=== PATIENT | female | born 1995 | race Caucasian/White ===

== ENCOUNTER 2022-12-09 16:07 | Emergency (ER) | payer OTHER, SELFPAY ==
[2022-12-09 16:13] VITALS: BP 138/82; PULSE 87; RESP 18; TEMP 36.9; O2SAT 98; BMI 39.0
--- NOTE | 2022-12-09 16:13 | ED_ITS ---
HPI - Dental/Oral General Chief complaint: Dental/Oral Stated complaint: Tooth pain Time Seen by Provider: 12/09/22 16:18 Source: patient Mode of arrival: ambulatory History of Present Illness HPI Narrative: 27-year-old female at 7 weeks gestation presenting to the ED complaining of right acute on chronic upper dental pain at cracked tooth site. Reports tooth has been cracked x years, has an appointment with her dentist on Friday however cannot handle the pain. Denies fever, chills, difficulty/inability to swallow, related complaints including abdominal pain, vaginal bleeding, vaginal discharge. MD Complaint: tooth pain Onset (ago): day(s) Related Data Previous Rx's Medication Instructions Recorded acetaminophen 500 mg tablet 500 mg PO Q6H PRN fever or pain 12/09/22 (Tylenol Extra Strength) #14 tabs amoxicillin 500 mg capsule 500 mg PO Q8H 7 days #21 caps 12/09/22 Allergies Allergy/AdvReac Type Severity Reaction Status Date / Time No Known Allergies Allergy Unverified 08/17/20 19:43 [No Known Allergies*] Review of Systems Review of Systems: Constitutional: No Fever, No Chills ENT/Mouth: +dental pain, No Ear Pain, No Nasal Congestion, No Hoarseness, No sore throat, No Rhinorrhea, No Swallowing Difficulty Cardiovascular: No Chest Pain, No SOB Respiratory: No Cough, No Sputum, No Wheezing Gastrointestinal: No vaginal bleeding, no vaginal discharge, No Nausea, No Vomiting, No Diarrhea, No Constipation, No Abdominal pain Genitourinary: No Dysuria, No Urinary Frequency, No Hematuria, No Flank Pain Musculoskeletal: No joint pain, No Myalgias, No Joint Swelling Skin: No Skin Lesions, No rash Neuro: No Weakness Yes all other systems are reviewed and are negative Constitutional: Constitutional: Reports as per [facility] Past Medical History Attestation statement: The following information was validated with the patient. Social History Social History Advance Directives: No Advance Directives Information Provided: No Physical Exam Vital Signs: Vital Signs: Last Vital Signs Temp 98.5 F 12/09/22 16:13 Pulse 87 12/09/22 16:13 Resp 18 12/09/22 16:13 BP 138/82 12/09/22 16:13 Pulse Ox 98 12/09/22 16:13 O2 Del Method 12/09/22 16:13 BMI result Body Mass Index 39.0 Const: General: cooperative, healthy appearing, no acute distress, alert and awake Orientation/consciousness: patient oriented x3 Limitations: no limitations HEENT: Other: Right upper 3rd molar cracked, no visible pulp. Surrounding gingival swelling/erythema and tenderness noted. No appreciable fluctuance/induration. No facial swelling. Oropharynx otherwise WNL, uvula midline, no evidence of [employer] Head: Yes normal to inspection and Yes atraumatic Ears: hearing grossly normal bilaterally, TM's normal bilaterally and mastoids normal General nose exam: Normal external nose present Face and sinus: Yes normal facial exam Teeth and gingiva: gingiva abnormal Throat: Yes posterior oropharynx normal, Yes tonsils normal, Yes uvula midline, No peritonsillar mass, No uvula laterally displaced and No uvular edema Eyes: General: appearance normal, both eyes and all related structures EOM: EOMs intact bilaterally Neck: Neck: Yes normal visual inspection, Yes no lymphadenopathy, Yes no meningeal signs, Yes supple and No anterior neck swelling Resp: Effort & Inspection: normal respiratory effort, no respiratory distress and no stridor Cardio: Rate: regular rate Skin: Rashes: no rashes Wounds: no wounds Neuro: General: patient oriented x3, tone normal and no meningeal signs Gait exam (Neuro): Normal gait present Extrem: General: Yes normal to inspection Medical Decision Making Medical Decision Making MDM Narrative: 27-year-old female at 7 weeks gestation presenting to the ED complaining of right acute on chronic upper dental pain at cracked tooth site. On exam vital signs stable, NAD, nontoxic appearing, physical exam as noted above. Patient denies any -related complaints. Has follow-up with her dentist next week. No evidence of abscess/cellulitis or deeper infection/edema Will initiate patient on amoxicillin and Tylenol. Differential Diagnosis Differential Diagnoses: The differential diagnosis associated with the presentation includes As above Prescription Management I considered prescription management with: Pain Medication and Antibiotic Discharge Plan Discharge Clinical Impression: Toothache Patient Disposition: Home, Self-Care Instructions: Toothache (ED) Additional Instructions: Amoxicillin is an antibiotic please take as prescribed. In addition take Tylenol. Please follow-up with her dentist. If symptoms persist or worsen return to the emergency department Prescriptions: New amoxicillin 500 mg capsule 500 mg PO Q8H 7 Days Qty: 21 0RF acetaminophen [Tylenol Extra Strength] 500 mg tablet 500 mg PO Q6H PRN (Reason: fever or pain) Qty: 14 0RF Referrals: Physician,Unknown J [Primary Care Provider] -
== END 2022-12-09 16:23 | disposition home or self-care (01) ==
LOC: HO.ED 16:22
PROVIDERS: Emergency Provider Emergency Medicine; PCP Internal Medicine
DX: O26.891 Other specified pregnancy related conditions, first trimester (principal); K08.89 Other specified disorders of teeth and supporting structures; Z3A.01 Less than 8 weeks gestation of pregnancy
CPT/HCPCS: 99282; 99283

== ENCOUNTER 2022-12-15 12:04 | Emergency (ER) | payer OTHER, SELFPAY ==
--- NOTE | ~2022-12-15 | US_ITS ---
EXAMINATION: US OBSTETRICAL ULTRASOUND CLINICAL INFORMATION: Lower abdominal cramping, . COMPARISON: None. LMP: 10/22/2022. Gestational age by maternal dates is 7 weeks 5 days. Estimated date of delivery by maternal dates is not known. TECHNIQUE: Transabdominal and transvaginal ultrasound imaging of pelvis was performed. FINDINGS: There is a single intrauterine irregular-appearing gestational sac visualized with a mean sac diameter of 0.61 cm corresponding to 5 weeks 1 day. There is nonvisualization of yolk sac, pole or heart rate. MATERNAL ADNEXA: The right maternal ovary measures 2.9 x 2.4 x 2.0 cm. It appears unremarkable. The left maternal ovary measures 2.7 x 2.4 x 3.0 cm. It appears unremarkable. There is no significant maternal adnexal mass. No maternal pelvic ascites. US/US OB pelvic and transvaginal IMPRESSION: Single intrauterine gestation with a mean sac diameter of 0.6 cm corresponding to 5 weeks 1 day. No pole, heartbeat or yolk sac seen.
[2022-12-15 12:06] VITALS: BP 130/87; PULSE 84; RESP 18; TEMP 36.7; O2SAT 98; BMI 33.9
--- NOTE | 2022-12-15 12:11 | ED.GENADULT ---
HPI - General Adult General Chief complaint: OB <SABINE Blue - Last Filed: 12/15/22 18:24> Stated complaint: 8 wks preg/Fall-Cramping <SABINE Blue - Last Filed: 12/15/22 18:24> Time Seen by Provider: 12/15/22 12:30 <SABINE Blue - Last Filed: 12/15/22 18:24> Source: patient <Marti Turner NP - Last Filed: 12/15/22 18:20> Mode of arrival: ambulatory <Marti Turner NP - Last Filed: 12/15/22 18:20> Limitations: no limitations <Marti Turner NP - Last Filed: 12/15/22 18:20> History of Present Illness HPI narrative: 27-year-old female who is healthy who is currently about 8 weeks presents with concern for lower abdominal cramping after fall which occurred today. Patient reports she tripped and fell landing on her abdomen. No head strike or loss of conscious. About an hour after the fall she started to experience some lower abdominal cramping. No vaginal bleeding. She has her 1st appointment with her OB tomorrow (?[facility] [place]). She has not had ultrasound confirm IUP. She is . Last menstrual cycle was October 22 <Marti Turner NP - Last Filed: 12/15/22 18:20> Related Data Home medications: Previous Rx's Medication Instructions Recorded acetaminophen 500 mg tablet 500 mg PO Q6H PRN fever or pain 12/09/22 (Tylenol Extra Strength) #14 tabs amoxicillin 500 mg capsule 500 mg PO Q8H 7 days #21 caps 12/09/22 <SABINE Blue - Last Filed: 12/15/22 18:24> Allergies/adverse reactions: Allergies Allergy/AdvReac Type Severity Reaction Status Date / Time No Known Allergies Allergy Verified 12/15/22 12:06 [No Known Allergies*] <SABINE Blue Last Filed: 12/15/22 18:24> Review of Systems Review of Systems: Yes all other systems are reviewed and are negative <HOLA Avalos Last Filed: 12/15/22 18:20> Constitutional: Constitutional: Reports no additional constitutional complaints, Denies body ache(s), Denies chills, Denies fever(s), Denies headache(s) and Denies weakness <Marti Turner NP - Last Filed: 12/15/22 18:20> Eyes: Eyes: Reports no additional eye complaints and Denies change in vision <Marti Turner NP - Last Filed: 12/15/22 18:20> ENT: Reports system reviewed and no additional complaints, except as documented, Denies dizziness, Denies headache(s), Denies nasal congestion, Denies nasal discharge and Denies neck pain <Marti Turner NP - Last Filed: 12/15/22 18:20> Cardiovascular: Cardiovascular: Reports no additional cardiovascular complaints, Denies chest pain, Denies leg edema and Denies dyspnea <Marti Turner NP - Last Filed: 12/15/22 18:20> Respiratory: Respiratory: Reports no additional respiratory complaints, Denies cough and Denies dyspnea <Marti Turner HOSPICE HOME CARE COORDINATOR - Last Filed: 12/15/22 18:20> Gastrointestinal: Gastrointestinal: Reports no additional gastrointestinal complaints, Reports abdominal pain, Denies diarrhea, Denies nausea and Denies vomiting <Marti Turner NP - Last Filed: 12/15/22 18:20> Genitourinary: Genitourinary: Reports no additional female genitourinary complaints and Denies urinary incontinence <Marti Turner NP - Last Filed: 12/15/22 18:20> Musculoskeletal: Musculoskeletal: Reports no additional musculoskeletal complaints, Denies back pain, Denies arthralgias, Denies joint swelling, Denies neck pain, Denies numbness and Denies tingling <Marti Turner NP - Last Filed: 12/15/22 18:20> Integumentary/Breasts: Skin/Breast: Reports system reviewed and no additional complaints, except as docu and Denies rash <Marti Tunrer NP - Last Filed: 12/15/22 18:20> Neurologic: Reports system reviewed and no additional complaints, except as documented, Denies dizziness, Denies headache(s), Denies numbness, Denies tingling and Denies weakness <Marti Turner NP - Last Filed: 12/15/22 18:20> PMF Past Medical History Attestation statement: The following information was validated with the patient. <Marti Turner NP - Last Filed: 12/15/22 18:20> Source: old records reviewed and nursing notes reviewed <Marti Turner NP - Last Filed: 12/15/22 18:20> Social History Social History: Social History Smoked in Last 30 Days: Yes Use of substances other than those prescribed or required for medical reasons: No Advance Directives: No Advance Directives Information Provided: Yes Patient : Yes <SABINE Blue - Last Filed: 12/15/22 18:24> Physical Exam ED Vital Signs: Vital Signs - 24 hr 12/15/22 12:06 12/15/22 14:39 12/15/22 17:40 Temperature 98.1 F 98.2 F 98.0 F Pulse Rate 84 80 84 Respiratory Rate 18 20 16 Blood Pressure 130/87 120/71 115/65 Pulse Oximetry 98 100 98 Oxygen Delivery Method Room Air Room Air Room Air BMI result Body Mass Index 33.9 <SABINE Blue - Last Filed: 12/15/22 18:24> Vital Signs - 24 hr 12/15/22 12:06 12/15/22 14:39 12/15/22 17:40 Temperature 98.1 F 98.2 F 98.0 F Pulse Rate 84 80 84 Respiratory Rate 18 20 16 Blood Pressure 130/87 120/71 115/65 Pulse Oximetry 98 100 98 Oxygen Delivery Method Room Air Room Air Room Air BMI result Body Mass Index 33.9 <Marti Turner NP - Last Filed: 12/15/22 18:20> Const General: cooperative, healthy appearing and comfortable <Marti Turner NP - Last Filed: 12/15/22 18:20> Orientation/consciousness: patient oriented x3 <Marti Turner NP - Last Filed: 12/15/22 18:20> Limitations: no limitations <Marti Turner NP - Last Filed: 12/15/22 18:20> HENMT Head: Yes normal to inspection <Marti Turner NP - Last Filed: 12/15/22 18:20> Ears: hearing grossly normal bilaterally <Marti Turner NP - Last Filed: 12/15/22 18:20> Eyes General: appearance normal, both eyes and all related structures <Marti Turner HOSPICE HOME CARE COORDINATOR - Last Filed: 12/15/22 18:20> Pupils: Equal, round and reactive pupils present <Marti Turner HOSPICE HOME CARE COORDINATOR - Last Filed: 12/15/22 18:20> Neck Neck: Yes normal visual inspection and Yes full ROM <Marti Turner HOSPICE HOME CARE COORDINATOR - Last Filed: 12/15/22 18:20> Chest Chest palpation & inspection: normal inspection of the chest <Matri Turner HOSPICE HOME CARE COORDINATOR - Last Filed: 12/15/22 18:20> Resp Effort & Inspection: normal respiratory effort <Marti Turner NP - Last Filed: 12/15/22 18:20> Auscultation: clear to auscultation bilaterally <Marti Turner HOSPICE HOME CARE COORDINATOR - Last Filed: 12/15/22 18:20> Cardio Rate: regular rate <Marti Turner NP - Last Filed: 12/15/22 18:20> Rhythm: regular rhythm <Marti Turner NP - Last Filed: 12/15/22 18:20> Peripheral pulses: Peripheral pulses 2+ throughout <Marti Turner HOSPICE HOME CARE COORDINATOR - Last Filed: 12/15/22 18:20> GI Inspection: Yes normal to inspection <Marti Turner HOSPICE HOME CARE COORDINATOR - Last Filed: 12/15/22 18:20> Palpation (GI): Soft to palpation and Tenderness to palpation present (GI) (suprapubic-no ecchymosis seen) <Marti Turner NP - Last Filed: 12/15/22 18:20> General: Yes no CVA tenderness <Marti Turner NP - Last Filed: 12/15/22 18:20> Back/Spine/Pelvis Back: no CVA tenderness <Marti Turner NP - Last Filed: 12/15/22 18:20> Thoracic/Lumbar Spine: thoracic and lumbar spine normal to inspection <Marti Turner NP - Last Filed: 12/15/22 18:20> Skin General skin exam: no rashes or lesions noted <Marti Turner NP - Last Filed: 12/15/22 18:20> Neuro General: patient oriented x3 and moves all extremities <Marti Turner NP - Last Filed: 12/15/22 18:20> Cranial nerves: Yes Equal, round and reactive pupils present <Marti Turner NP - Last Filed: 12/15/22 18:20> Cognition (Neuro): normal cognition <Marti Turner NP - Last Filed: 12/15/22 18:20> Gait exam (Neuro): Normal gait present <Marti Turner NP - Last Filed: 12/15/22 18:20> Course Course Course Narrative: RME: 27-year-old female presents to ED for lower abdominal suprapubic cramping after falling on her but this morning. Patient 8 weeks . Patient denies any vaginal bleeding. Patient denies any head trauma, , loss of consciousness, pain in extremities, back pain, or neck pain. Labs and ultrasound. Positive for suprapuic tenderness on palpation. <SABINE Blue - Last Filed: 12/15/22 18:24> Reevaluation(s) Reevaluation #1: 1630-multiple calls by ER staff to get ultrasound reading on successfully <Marti Turner NP - Last Filed: 12/15/22 18:20> Reevaluation #2: 1730-2nd call to Radiology looking for US report <Marti Turner NP - Last Filed: 12/15/22 18:20> Reevaluation #3: 1815-3rd call to radiology for report personally. Did receive call back from radiology with verbal report. Ultrasound shows single gestational intrauterine with a mean sac of 0.6 cm approximately 5 weeks and 1 of the 7 days. No pole, heartbeat or yolk sac seen Patient was given this information. She has an appointment tomorrow with her OB. Recommend she return for any worsening symptoms. Reviewed worrisome signs symptoms of when to return to the emergency room. Comfortable plan for discharge home. <Marti Turner NP - Last Filed: 12/15/22 18:20> Medical Decision Making Medical Decision Making MDM Narrative: 27-year-old female currently 8 weeks here with a fall with a abdominal strike now with abdominal cramping but no vaginal bleeding. Will check labs, UA, abdominal ultrasound <Marti Turner NP - Last Filed: 12/15/22 18:20> Differential Diagnosis Differential Diagnoses: The differential diagnosis associated with the presentation includes <Marti Turner NP - Last Filed: 12/15/22 18:20> Threatened miscarriage <Marti Turner NP - Last Filed: 12/15/22 18:20> Lab Data Result Diagrams: 12/15/22 12:19 12/15/22 12:19 <SABINE Blue - Last Filed: 12/15/22 18:24> Labs: Lab Results 12/15/22 12/15/22 12/15/22 Range/Units 12:19 12:19 12:19 WBC 11.4 H (4.8-10.8) X10*3/uL RBC 4.74 (4.20-5.50) X10*6/uL Hgb 12.8 (12.0-16.0) g/dl Hct 38.4 (37.0-47.0) % MCV 81.0 (80.0-98.0) fL MCH 27.0 (27.0-33.0) pg MCHC 33.3 (31.0-35.0) g/dl RDW 13.2 (11.0-16.0) % Plt Count 338 (160-400) X10*3/uL MPV 9.3 L (9.4-12.3) fL Immature Gran % (Auto) 0.3 (0.0-0.4) % Neut % (Auto) 53.2 (45-73) % Lymph % (Auto) 40.0 (20-40) % [place] % (Auto) 4.4 (2-11) % Eos % (Auto) 1.3 (0-4) % Baso % (Auto) 0.8 (0-2) % Lymph # (Auto) 4.6 (1.2-4.9) X10*3/uL [place] # (Auto) 0.5 (0.1-1.2) X10*3/uL Eos # (Auto) 0.2 (0.0-0.4) X10*3/uL Baso # (Auto) 0.1 (0.0-0.2) X10*3/uL Abs Immat Gran (auto) 0.03 (0.00-0.03) X10*3/uL Absolute Neuts (auto) 6.1 (2.0-8.3) x10*3/uL Absolute Nucleated RBC 0.000 (0.0-0.012) X10*3/uL Nucleated RBC % (auto) 0.0 (0.0-0.2) /100WBC PT 11.5 (10.0-13.1) SEC INR 1.0 (0.9-1.1) APTT 29.5 (26.0-36.4) SEC Sodium 139 (135-145) mmol/L Potassium 4.4 (3.3-5.1) mmol/L Chloride 106 (96-108) mmol/L Carbon Dioxide 25 (22-29) mmol/L Anion Gap 12 (12-20) BUN 11 (9-16) mg/dL Creatinine 0.66 (0.5-1.4) mg/dL Estim Creat Clear Calc 148.9 Estimated GFR > 60 Random Glucose 84 (60-115) mg/dL Calcium 9.4 (8.4-10.2) mg/dL Total Bilirubin 0.2 (0.0-1.0) mg/dL AST 15 (5-31) U/L ALT 18 (0-31) U/L Alkaline Phosphatase 48 (39-117) U/L Total Protein 6.8 (6.5-8.0) g/dL Albumin 4.0 (3.5-5.0) g/dL Beta HCG, Quant 3330 mIU/mL Urine Color Urine Appearance Urine pH (5.0-9.0) Ur Specific [place] (1.005-1.025) Urine Protein (Neg-Trace) mg/dL Urine Glucose (UA) (Negative) mg/dL Urine Ketones (Negative) mg/dL Urine Blood (Negative) Urine Nitrite (Negative) Ur Leukocyte Esterase (Negative) 12/15/22 Range/Units 12:19 WBC (4.8-10.8) X10*3/uL RBC (4.20-5.50) X10*6/uL Hgb (12.0-16.0) g/dl Hct (37.0-47.0) % MCV (80.0-98.0) fL MCH (27.0-33.0) pg MCHC (31.0-35.0) g/dl RDW (11.0-16.0) % Plt Count (160-400) X10*3/uL MPV (9.4-12.3) fL Immature Gran % (Auto) (0.0-0.4) % Neut % (Auto) (45-73) % Lymph % (Auto) (20-40) % [place] % (Auto) (2-11) % Eos % (Auto) (0-4) % Baso % (Auto) (0-2) % Lymph # (Auto) (1.2-4.9) X10*3/uL [place] # (Auto) (0.1-1.2) X10*3/uL Eos # (Auto) (0.0-0.4) X10*3/uL Baso # (Auto) (0.0-0.2) X10*3/uL Abs Immat Gran (auto) (0.00-0.03) X10*3/uL Absolute Neuts (auto) (2.0-8.3) x10*3/uL Absolute Nucleated RBC (0.0-0.012) X10*3/uL Nucleated RBC % (auto) (0.0-0.2) /100WBC PT (10.0-13.1) SEC INR (0.9-1.1) APTT (26.0-36.4) SEC Sodium (135-145) mmol/L Potassium (3.3-5.1) mmol/L Chloride (96-108) mmol/L Carbon Dioxide (22-29) mmol/L Anion Gap (12-20) BUN (9-16) mg/dL Creatinine (0.5-1.4) mg/dL Estim Creat Clear Calc Estimated GFR Random Glucose (60-115) mg/dL Calcium (8.4-10.2) mg/dL Total Bilirubin (0.0-1.0) mg/dL AST (5-31) U/L ALT (0-31) U/L Alkaline Phosphatase (39-117) U/L Total Protein (6.5-8.0) g/dL Albumin (3.5-5.0) g/dL Beta HCG, Quant mIU/mL Urine Color Yellow Urine Appearance Clear Urine pH 5.5 (5.0-9.0) Ur Specific [place] >= 1.030 H (1.005-1.025) Urine Protein Negative (Neg-Trace) mg/dL Urine Glucose (UA) Negative (Negative) mg/dL Urine Ketones Trace (Negative) mg/dL Urine Blood Negative (Negative) Urine Nitrite Negative (Negative) Ur Leukocyte Esterase Negative (Negative) <SABINE Blue - Last Filed: 12/15/22 18:24> Lab Results 12/15/22 12/15/22 12/15/22 Range/Units 12:19 12:19 12:19 WBC 11.4 H (4.8-10.8) X10*3/uL RBC 4.74 (4.20-5.50) X10*6/uL Hgb 12.8 (12.0-16.0) g/dl Hct 38.4 (37.0-47.0) % MCV 81.0 (80.0-98.0) fL MCH 27.0 (27.0-33.0) pg MCHC 33.3 (31.0-35.0) g/dl RDW 13.2 (11.0-16.0) % Plt Count 338 (160-400) X10*3/uL MPV 9.3 L (9.4-12.3) fL Immature Gran % (Auto) 0.3 (0.0-0.4) % Neut % (Auto) 53.2 (45-73) % Lymph % (Auto) 40.0 (20-40) % [place] % (Auto) 4.4 (2-11) % Eos % (Auto) 1.3 (0-4) % Baso % (Auto) 0.8 (0-2) % Lymph # (Auto) 4.6 (1.2-4.9) X10*3/uL [place] # (Auto) 0.5 (0.1-1.2) X10*3/uL Eos # (Auto) 0.2 (0.0-0.4) X10*3/uL Baso # (Auto) 0.1 (0.0-0.2) X10*3/uL Abs Immat Gran (auto) 0.03 (0.00-0.03) X10*3/uL Absolute Neuts (auto) 6.1 (2.0-8.3) x10*3/uL Absolute Nucleated RBC 0.000 (0.0-0.012) X10*3/uL Nucleated RBC % (auto) 0.0 (0.0-0.2) /100WBC PT 11.5 (10.0-13.1) SEC INR 1.0 (0.9-1.1) APTT 29.5 (26.0-36.4) SEC Sodium 139 (135-145) mmol/L Potassium 4.4 (3.3-5.1) mmol/L Chloride 106 (96-108) mmol/L Carbon Dioxide 25 (22-29) mmol/L Anion Gap 12 (12-20) BUN 11 (9-16) mg/dL Creatinine 0.66 (0.5-1.4) mg/dL Estim Creat Clear Calc 148.9 Estimated GFR > 60 Random Glucose 84 (60-115) mg/dL Calcium 9.4 (8.4-10.2) mg/dL Total Bilirubin 0.2 (0.0-1.0) mg/dL AST 15 (5-31) U/L ALT 18 (0-31) U/L Alkaline Phosphatase 48 (39-117) U/L Total Protein 6.8 (6.5-8.0) g/dL Albumin 4.0 (3.5-5.0) g/dL Beta HCG, Quant 3330 mIU/mL Urine Color Urine Appearance Urine pH (5.0-9.0) Ur Specific [place] (1.005-1.025) Urine Protein (Neg-Trace) mg/dL Urine Glucose (UA) (Negative) mg/dL Urine Ketones (Negative) mg/dL Urine Blood (Negative) Urine Nitrite (Negative) Ur Leukocyte Esterase (Negative) 12/15/22 Range/Units 12:19 WBC (4.8-10.8) X10*3/uL RBC (4.20-5.50) X10*6/uL Hgb (12.0-16.0) g/dl Hct (37.0-47.0) % MCV (80.0-98.0) fL MCH (27.0-33.0) pg MCHC (31.0-35.0) g/dl RDW (11.0-16.0) % Plt Count (160-400) X10*3/uL MPV (9.4-12.3) fL Immature Gran % (Auto) (0.0-0.4) % Neut % (Auto) (45-73) % Lymph % (Auto) (20-40) % [place] % (Auto) (2-11) % Eos % (Auto) (0-4) % Baso % (Auto) (0-2) % Lymph # (Auto) (1.2-4.9) X10*3/uL [place] # (Auto) (0.1-1.2) X10*3/uL Eos # (Auto) (0.0-0.4) X10*3/uL Baso # (Auto) (0.0-0.2) X10*3/uL Abs Immat Gran (auto) (0.00-0.03) X10*3/uL Absolute Neuts (auto) (2.0-8.3) x10*3/uL Absolute Nucleated RBC (0.0-0.012) X10*3/uL Nucleated RBC % (auto) (0.0-0.2) /100WBC PT (10.0-13.1) SEC INR (0.9-1.1) APTT (26.0-36.4) SEC Sodium (135-145) mmol/L Potassium (3.3-5.1) mmol/L Chloride (96-108) mmol/L Carbon Dioxide (22-29) mmol/L Anion Gap (12-20) BUN (9-16) mg/dL Creatinine (0.5-1.4) mg/dL Estim Creat Clear Calc Estimated GFR Random Glucose (60-115) mg/dL Calcium (8.4-10.2) mg/dL Total Bilirubin (0.0-1.0) mg/dL AST (5-31) U/L ALT (0-31) U/L Alkaline Phosphatase (39-117) U/L Total Protein (6.5-8.0) g/dL Albumin (3.5-5.0) g/dL Beta HCG, Quant mIU/mL Urine Color Yellow Urine Appearance Clear Urine pH 5.5 (5.0-9.0) Ur Specific [place] >= 1.030 H (1.005-1.025) Urine Protein Negative (Neg-Trace) mg/dL Urine Glucose (UA) Negative (Negative) mg/dL Urine Ketones Trace (Negative) mg/dL Urine Blood Negative (Negative) Urine Nitrite Negative (Negative) Ur Leukocyte Esterase Negative (Negative) <Marti Turner NP - Last Filed: 12/15/22 18:20> Independent Interpretation I performed an independent interpretation of an: Ultrasound <Marti Turner NP - Last Filed: 12/15/22 18:20> Radiology Impression Discussion of test interpretation with radiology: I have reviewed the radiologist's reading. <Marti Turner NP - Last Filed: 12/15/22 18:20> Discharge Plan Discharge Clinical Impression: Threatened miscarriage <SABINE Blue - Last Filed: 12/15/22 18:24> Patient Disposition: Home, Self-Care <SABINE Blue - Last Filed: 12/15/22 18:24> Instructions: Threatened Miscarriage (ED) <SABINE Blue - Last Filed: 12/15/22 18:24> Additional Instructions: Keep your appointment tomorrow with your Ob Your beta quant is 3330 Your ultrasound shows a single intrauterine with a mean sac of 0.6 cm. There estimating you are 5 weeks. There is no pole or heartbeat seen at this time. This may be because it is too soon to see this on ultrasound. Follow-up closely with your OB to determine if you need repeat ultrasound or hormone levels. Return for any bleeding. Pelvic rest so that means no sexual intercourse until cramping is resolved. Tylenol only for pain. Make sure that you are taking your <SABINE Blue - Last Filed: 12/15/22 18:24> Prescriptions: No Action amoxicillin 500 mg capsule 500 mg PO Q8H 7 Days Qty: 21 0RF acetaminophen [Tylenol Extra Strength] 500 mg tablet 500 mg PO Q6H PRN (Reason: fever or pain) Qty: 14 0RF <SABINE Blue - Last Filed: 12/15/22 18:24> Referrals: Physician,Unknown J [Primary Care Provider] - <SABINE Blue - Last Filed: 12/15/22 18:24> Stand Alone Forms: Work/School Release <SABINE Blue - Last Filed: 12/15/22 18:24>
[2022-12-15 12:24] LABS: MANUAL DIFF FLAG NO
[2022-12-15 12:29] LABS: Basophils Absolute Auto 0.1 X10*3/uL (0.0-0.2); Basophils Percent Auto 0.8 % (0-2); Eosinophils Absolute Auto 0.2 X10*3/uL (0.0-0.4); Eosinophils Percent Auto 1.3 % (0-4); Hematocrit 38.4 % (37.0-47.0); Hemoglobin 12.8 g/dl (12.0-16.0); Imm Gran Abs Auto 0.03 X10*3/uL (0.00-0.03); Imm Gran Pct Auto 0.3 % (0.0-0.4); Lymphocytes Absolute Auto 4.6 X10*3/uL (1.2-4.9); Mean Corpuscular HGB Conc 33.3 g/dl (31.0-35.0); Mean Platelet Volume 9.3 fL (9.4-12.3); Monocytes Absolute Auto 0.5 X10*3/uL (0.1-1.2); Monocytes Percent Auto 4.4 % (2-11); Neutrophils Absolute Auto 6.1 x10*3/uL (2.0-8.3); Neutrophils Percent Auto 53.2 % (45-73); Platelet Count 338 X10*3/uL (160-400); Red Blood Count 4.74 X10*6/uL (4.20-5.50); Red Cell Distribution Width 13.2 % (11.0-16.0); White Blood Count 11.4 X10*3/uL (4.8-10.8)
[2022-12-15 12:35] LABS: Prothrombin Time 11.5 SEC (10.0-13.1)
[2022-12-15 12:37] LABS: Partial Thromboplastin Time 29.5 SEC (26.0-36.4)
[2022-12-15 12:42] LABS: Appearance Urine Clear; Color Urine Yellow; Glucose Urine UA Negative (Negative); Leukocyte Esterase Urine Negative (Negative); Nitrite Urine Negative (Negative); PH 5.5 (5.0-9.0); Specific Gravity - Urine >= 1.030 (1.005-1.025); Urine Blood Negative (Negative); Urine Ketones Trace mg/dL (Negative); Urine Protein Negative (Neg-Trace)
[2022-12-15 12:48] LABS: Alanine Aminotransferase 18 U/L (0-31); Alkaline Phosphatase 48 U/L (39-117); Anion Gap 12 (12-20); Aspartate Amino Transferase 15 U/L (5-31); Bilirubin Total 0.2 mg/dL (0.0-1.0); Blood Urea Nitrogen 11 mg/dL (9-16); Calcium 9.4 mg/dL (8.4-10.2); Carbon Dioxide 25 mmol/L (22-29); Chloride 106 mmol/L (96-108); Creatinine Clr Calc Pharmacy 148.9; Estimated Glomerular Filt Rate > 60; Glucose Random 84 mg/dL (60-115); HCG Quantitative 3330 mIU/mL; Potassium 4.4 mmol/L (3.3-5.1); Sodium 139 mmol/L (135-145); Total Protein 6.8 g/dL (6.5-8.0)
[2022-12-15 14:39] VITALS: BP 120/71; PULSE 80; RESP 20; TEMP 36.8; O2SAT 100
[2022-12-15 17:40] VITALS: BP 115/65; PULSE 84; RESP 16; TEMP 36.7; O2SAT 98
== END 2022-12-15 18:27 | disposition home or self-care (01) ==
PROVIDERS: Physician Assistant; Emergency Provider Emergency Medicine
DX: O26.91 Pregnancy related conditions, unspecified, first trimester (principal); Z3A.08 8 weeks gestation of pregnancy; Z37.9 Outcome of delivery, unspecified; Z79.899 Other long term (current) drug therapy
CPT/HCPCS: 36415; 76801; 76817; 80053; 81003; 84702; 85025; 85610; 85730; 99284

== ENCOUNTER 2023-11-28 02:17 | Emergency (ER) | payer OTHER, SELFPAY ==
--- NOTE | 2023-11-28 | ECG_ITS ---
Test Reason : CHEST PAIN Blood Pressure : / mmHG Vent. Rate : 081 BPM Atrial Rate : 081 BPM P-R Int : 162 ms QRS Dur : 092 ms QT Int : 394 ms P-R-T Axes : 058 011 035 degrees QTc Int : 457 ms Normal sinus rhythm Normal ECG No previous ECGs available Referred By: Generic ED Physician Electronically Signed By:OLIVIER BABB
[2023-11-28 02:18] VITALS: BP 126/79; PULSE 88; RESP 18; TEMP 37.3; O2SAT 98; BMI 43.3
[2023-11-28 03:06] LABS: Influenza A PCR NEGATIVE (Negative); Influenza B PCR NEGATIVE (Negative); Resp Syncy Virus RNA Qual PCR NEGATIVE (Negative); SARS COV2 PCR INHOUSE NEGATIVE (Negative)
[2023-11-28 04:05] VITALS: BP 118/79; PULSE 86; RESP 18; TEMP 37.2; O2SAT 98
[2023-11-28 04:06] VITALS: O2SAT 96
--- NOTE | 2023-11-28 04:08 | MHC.EDTECH ---
Hourly rounds and vitals completed,call moore within reach
--- NOTE | 2023-11-28 04:08 | PC.NURSE ---
this rn assumed care of pt. pt reports onset of cough and congestion for 5 days. pt denies being around anyone sick. pt reports she is breast feeding and would like to be tested for flu, covid and rsv. pt denies n/v/d. pt lung sounds clear bilaterally. pt able to speak in full sentences.
--- NOTE | 2023-11-28 05:20 | ED.URI ---
HPI - URI/Sore Throat General Chief Complaint: Upper Respiratory Symptoms Stated Complaint: flu symptoms Time Seen by Provider: 11/28/23 05:16 Source: patient Mode of arrival: ambulatory Limitations: no limitations History of Present Illness HPI Narrative: Patient comes to the emergency room complaining of URI including nasal congestion, runny nose. Patient states that she has a 3-month-old baby at home away like to be tested for COVID. Patient denies fever chills. Related Data Previous Rx's Medication Instructions Recorded acetaminophen 500 mg tablet 500 mg PO Q6H PRN fever or pain 12/09/22 (Tylenol Extra Strength) #14 tabs amoxicillin 500 mg capsule 500 mg PO Q8H 7 days #21 caps 12/09/22 acetaminophen 500 mg tablet 500 mg PO Q6H PRN fever or pain 11/28/23 #20 tabs guaifenesin 100 mg/5 mL oral liquid 200 mg (10 mL) PO Q4H PRN cough 11/28/23 #473 mL Allergies Allergy/AdvReac Type Severity Reaction Status Date / Time No Known Allergies Allergy Verified 12/15/22 12:06 [No Known Allergies*] Review of Systems Review of Systems: Constitutional : No Weight loss, No Fever, No Chills, No Night Sweats, No Fatigue, No Malaise ENT/Mouth : No Hearing loss, No Ear Pain, complaining of Nasal Congestion, No Sinus Pain, No Hoarseness, No sore throat, complaining of Rhinorrhea, No Swallowing Difficulty Eyes: No Eye Pain, No Swelling, No Redness, No Foreign Body, No Discharge, No Vision Changes Cardiovascular : No Chest Pain, No SOB, No Dyspnea on Exertion, No Orthopnea, No Edema, No Palpitations Respiratory : No Cough, No Sputum, No Wheezing, No Smoke Exposure, No Dyspnea Gastrointestinal : No Nausea, No Vomiting, No Diarrhea, No Constipation, No abdominal Pain, No Hematochezia, No Melena Genitourinary : no irregular bleeding, No Dysuria, No Urinary Frequency, No Hematuria, No Urinary Incontinence, No Urgency, No Flank Pain, No Urinary Flow Changes, No Hesitancy Musculoskeletal : No joint pain, No Myalgias, No Joint Swelling Skin : No Skin Lesions, No rash Neuro : No Weakness, No Numbness, No Paresthesias, No Loss of Consciousness, No Dizziness, No Headache Psych : No Anxiety/Panic, No Depression, No SI/HI/AH/VH, No Social Issues, Heme/Lymph: No Bruising, No Bleeding,No Lymphadenopathy Endocrine : No Polyuria, No Polydipsia, No Temperature Intolerance [facility] Social History Social History Smoked in Last 30 Days: Yes Use of substances other than those prescribed or required for medical reasons: Yes Substance Use Type: Marijuana Substance Use Frequency: Occasionally Advance Directives: No Advance Directives Information Provided: Yes Patient : No Physical Exam Vital Signs: Vital Signs: Last Vital Signs Temp 98.9 F 11/28/23 04:05 Pulse 86 11/28/23 04:05 Resp 18 11/28/23 04:05 BP 118/79 11/28/23 04:05 Pulse Ox 96 11/28/23 04:06 O2 Del Method Room Air 11/28/23 04:06 BMI result Body Mass Index 43.3 Const: Other: Appearance: Alert. Oriented X3. No acute distress. Eyes: Pupils equal, round and reactive to light. ENT: Pharynx normal. Nasal congestion Neck: Normal inspection. Neck supple. No lymph nodes noted. No crepitus CVS: Normal heart rate and rhythm. Pulses normal. Normal S1 and S2 Respiratory: No respiratory distress. Breath sounds normal. No Wheezing. No rales Abdomen: Soft and nontender. No rigidity. No distention. Skin: Skin warm and dry. Normal skin color. Normal skin turgor. Extremities: No lower extremity edema. No Lacerations. No Rash Neuro: Oriented X 3. No motor deficit. No sensory deficit. Moving all extremities. No slurred speech. CN 2 through 12 grossly intact Psych: calm, cooperative, normal affect Medical Decision Making Medical Decision Making MDM Narrative: -my interpretation of labs: Patient tested negative for COVID RSV and influenza -patient likely has a viral syndrome Differential Diagnosis Differential Diagnoses: The differential diagnosis associated with the presentation includes (As above) Lab Data [facility] Lab Attestation statement: I reviewed the patient's lab results. Labs: Lab Results 11/28/23 Range/Units 02:25 Influenza Type A (PCR) NEGATIVE (Negative) Influenza Type B (PCR) NEGATIVE (Negative) RSV RNA Qual (PCR) NEGATIVE (Negative) SARS-CoV-2 RNA (RT-PCR) NEGATIVE (Negative) Discharge Plan Discharge Clinical Impression: Viral URI Patient Disposition: Home, Self-Care Instructions: Acute Bronchitis (ED) Additional Instructions: Please follow-up with your primary care physician tomorrow. If you have any worsening or new symptoms, please return to the emergency room or call 911 Prescriptions: New guaifenesin 100 mg/5 mL liquid 200 mg PO Q4H PRN (Reason: cough) Qty: 473 0RF acetaminophen 500 mg tablet 500 mg PO Q6H PRN (Reason: fever or pain) Qty: 20 0RF No Action amoxicillin 500 mg capsule 500 mg PO Q8H 7 Days Qty: 21 0RF acetaminophen [Tylenol Extra Strength] 500 mg tablet 500 mg PO Q6H PRN (Reason: fever or pain) Qty: 14 0RF
== END 2023-11-28 05:32 | disposition home or self-care (01) ==
PROVIDERS: Emergency Provider Emergency Medicine; PCP Internal Medicine
DX: J06.9 Acute upper respiratory infection, unspecified (principal); R07.9 Chest pain, unspecified; Z20.822 Contact with and (suspected) exposure to COVID-19; Z20.828 Contact with and (suspected) exposure to other viral communicable diseases
CPT/HCPCS: 0241U; 93005; 99283; 99285

== ENCOUNTER → 2023-11-28 02:36 | Outpatient (BNV) | payer OTHER, SELFPAY | PROVIDERS: Emergency Provider Emergency Medicine; PCP Internal Medicine; Visit Provider Internal Medicine | DX: R07.9 Chest pain, unspecified (principal) | CPT/HCPCS: 93010 ==